=== PATIENT | female | born 1975 | race Two or more races ===

== ENCOUNTER 2024-07-07 09:28 | Outpatient (CLI) | payer OTHER ==
[~2024-07-07 09:28] MED LIST: N
[2024-07-07 11:05] LABS: HEMATOCRIT 38.8 % (36.0-45.00); HEMOGLOBIN 12.9 g/dL (12.0-15.00); MEAN CELL VOLUME 80.2 fL (80.00-100.00); MEAN CORPUSCULAR HEMOGLOBIN 26.7 pg (27.00-32.0); MEAN CORPUSCULAR HGB CONC 33.3 g/dl (32.0-36.0); PLATELET COUNT 269 K/uL (150-450); RED BLOOD COUNT 4.84 M/uL (4.00-6.00); RED CELL DISTRIBUTION WIDTH 14.6 % (11.5-14.5)
[2024-07-07 11:07] LABS: URINE APPEARANCE Clear; URINE BILIRRUBIN Negative (NEGATIVE); URINE BLOOD Negative; URINE COLOR Yellow; URINE GLUCOSE Negative (NEGATIVE); URINE KETONE Negative (NEGATIVE); URINE LEUKOCYTE Negative; URINE NITRATE Negative; URINE PROTEIN Negative (NEGATIVE); URINE UROBILINOGEN 0.2 E.U./dl
[2024-07-07 11:12] LABS: URINE EPITHELIAL CELLS 2.8 uL (0.0-38.8); URINE RBC 3.3 uL (0.0-20.8); URINE WBC 2.8 uL (0.0-23.2)
[2024-07-07 11:50] LABS: ALBUMIN 3.6 gm/dL (3.4-5.0); BILIRUBIN TOTAL 0.47 mg/dL (0.3-1.2); CALCIUM 8.9 mg/dL (8.5-10.1); CHOL HDL RATIO 3.2 (0-5.0); CREATININE SERUM 1.03 mg/dL (0.55-1.02); GFR 57.69; GLOBULINA 3.9 G/DL (2.4-3.5); POTASSIUM 4.3 mEq/L (3.5-5.1); TOTAL PROTEIN 7.5 gm/dL (6.4-8.2); TSH 0.77 uIU/mL (0.358-3.74)
== END 2024-07-07 09:35 | disposition home or self-care (01) ==
LOC: LAB 09:28
PROVIDERS: ATTEND Specialist
DX: E03.9 Hypothyroidism, unspecified (principal); E16.2 Hypoglycemia, unspecified; E78.5 Hyperlipidemia, unspecified; E55.9 Vitamin D deficiency, unspecified; Z12.11 Encounter for screening for malignant neoplasm of colon; N91.1 Secondary amenorrhea; E22.1 Hyperprolactinemia

== ENCOUNTER 2024-07-08 10:55 | Outpatient (CLI) | payer OTHER | END 2024-07-08 10:58 | disposition home or self-care (01) | LOC: MAMO-SONO 10:55 | PROVIDERS: ATTEND Specialist | DX: N60.01 Solitary cyst of right breast (principal); N60.02 Solitary cyst of left breast; Z12.31 Encounter for screening mammogram for malignant neoplasm of breast ==